=== PATIENT | male | born 1970 | race Caucasian/White ===

== ENCOUNTER 2020-04-09 05:15 | Emergency (ER) | payer MEDICAID ==
[~2020-04-09] VITALS: Ht 170.2 cm; Wt 95.3 kg
[2020-04-09 05:18] VITALS: BP 121/85
--- NOTE | 2020-04-09 05:18 | NUR ---
PT TAKEN TO BED # 9 VIA W/C.
--- NOTE | 2020-04-09 05:20 | NUR ---
49 Y/O MALE C/O SOB X 8 DAYS, WORSENING 8 DAYS. TESTED +COVID ON 04/02/20/ PT STATES HE HAS A LOSS OF APPEPTITIE AND GENERALIZED BODY ACHES. C/O 10/10 ACHING PAIN IN BILAT CHEST AND RIB AREA. LUNGS SOUNDS CLA. BOWEL SOUNDS ACTIVE. ABD SOFT, NON TENDER TO TOUCH. DENIES N/V/D. PMH: NONE STATED NKA
--- NOTE | 2020-04-09 05:55 | NUR ---
PT IS DIAPHORETIC. 1 L NS BOLUS STARTED. WILL CONTINUE TO MONITOR.
--- NOTE | 2020-04-09 06:05 | NUR ---
BLOOD LABS COLLECTED AND WALKED TO LAB.
[2020-04-09] MEDS ORDERED: NACL 0.9% 1,000 ML IV ONE ×2 (06:10→07:15)
[2020-04-09 06:12] LABS: BASOPHILS # (AUTO) 0.1 K/uL (0.00-0.22); BASOPHILS % (AUTO) 0.9 % (0.0-2.0); HEMATOCRIT 44.5 % (36-52); HEMOGLOBIN 15.3 g/dL (12.0-18.0); LYMPHOCYTES # (AUTO) 0.8 K/uL (2.0-11.5); LYMPHOCYTES % (AUTO) 14.6 % (20.5-51.1); MEAN CORPUSCULAR HEMOGLOBIN 33 pg (27-31); MEAN CORPUSCULAR HGB CONC 34 g/dL (33-37); MEAN CORPUSCULAR VOLUME 94.6 fL (80-94); MONOCYTES # (AUTO) 0.4 K/uL (0.8-1.0); MONOCYTES % (AUTO) 6.8 % (1.7-9.3); NEUTROPHILS # (AUTO) 4.5 K/uL (1.8-7.7); NEUTROPHILS % (AUTO) 77.7 % (42.2-75.2); RED CELL DISTRIBUTION WIDTH 12.4 % (11.6-13.7); WHITE BLOOD COUNT (AUTO) 5.8 K/uL (4.8-10.8)
[2020-04-09 06:24] LABS: APPEARANCE,URINE CLEAR (CLEAR); BILIRUBIN,URINE NEGATIVE (NEGATIVE); BLOOD, URINE NEGATIVE (NEGATIVE); COLOR,URINE YELLOW (YELLOW); LEUKOCYTE ESTERASE ,URINE NEGATIVE (NEGATIVE); NITRITE, URINE NEGATIVE (NEGATIVE); UGLUCOSE NEGATIVE (NEGATIVE)
[2020-04-09 06:24] LABS: PLATELET COUNT (AUTO) 131 K/uL (140-450)
[2020-04-09 06:29] LABS: ANION GAP 14.3 (8-16); CARBON DIOXIDE 25.6 mmol/L (21-32); CREATININE 1.1 mg/dL (0.6-1.3); POTASSIUM 4.9 mmol/L (3.5-5.1); TOTAL BILIRUBIN 0.7 mg/dL (0.0-1.0)
[2020-04-09 06:46] LABS: D-DIMER 232 ng/ml (0-400)
[2020-04-09] MEDS ORDERED: AZITHROMYCIN 250 MG TAB PO ONE (06:55)
[2020-04-09] MEDS ORDERED: KETOROLAC 30 MG/ML VIAL IVP ONE (06:55)
--- NOTE | 2020-04-09 07:07 | NUR ---
REPORT GIVEN TO NADIA MONGE FOR CONTINUITY OF CARE.
--- NOTE | 2020-04-09 07:17 | NUR ---
PT RESTING IN BED, SIDE RAIL X1
[2020-04-09 07:19] LABS: LACTATE DEHYDROGENASE 423 U/L (85-227)
[2020-04-09 07:28] LABS: FIBRINOGEN 496 mg/dL (200-400)
[2020-04-09 07:51] LABS: RBC,URINE 0-5 /HPF (0-5); WBC,URINE 0-5 /HPF (0-5)
[2020-04-09 08:19] VITALS: BP 116/72
--- NOTE | 2020-04-09 08:20 | NUR ---
Patient discharged with v/s stable. Written and verbal after care instructions given and explained. Patient alert, oriented and verbalized understanding of instructions. Ambulatory with steady gait. All questions addressed prior to discharge. ID band removed. Patient advised to follow up with PMD. Rx of IBUPROFEN,AZITHROMYCIN given. Patient educated on indication of medication including possible reaction and side effects. Opportunity to ask questions provided and answered.
== END 2020-04-09 08:20 | disposition home or self-care (01) ==
LOC: MED 05:15 → EEVIPCON 05:15 → MED 08:20
DX: U07.1 COVID-19 (principal)
CPT/HCPCS: 36415; 36600; 71045; 80053; 81001; 82550; 82728; 82803; 83605; 83615; 83880; 84484; 85025; 85379; 85384; 85610; 85730; 86140; 87040; 87086; 93005; 96361; 96374; 99285; J1885; Q0092; J7030